=== PATIENT | male | born 1995 | race Caucasian/White ===

== ENCOUNTER 2019-10-03 17:05 | Observation (INO) | payer OTHER, SELFPAY ==
[2019-10-03 17:05] VITALS: BP 153/96; PULSE 104; RESP 16; TEMP 36.6; BMI 55.7
--- NOTE | 2019-10-03 18:23 | EKG12_ITS ---
Test Reason : Blood Pressure : / mmHG Vent. Rate : 086 BPM Atrial Rate : 086 BPM P-R Int : 146 ms QRS Dur : 082 ms QT Int : 394 ms P-R-T Axes : 082 020 -01 degrees QTc Int : 471 ms Normal sinus rhythm Normal ECG Confirmed by DASH WHITE, ABBIE ([id number]), industrial editor CHALO BURLESON ([id number]) on 10/08/2019 9:30:15 AM Referred By: Dylan Bailey Confirmed By:EDEL BOWLING MD
--- NOTE | 2019-10-03 18:25 | ED.DCSUM_ITS ---
History of Present Illness Chief Complaint: Cellulitis Detail of Chief Complaint: Right lower extremity Informant: Patient, Family Onset: Days - Onset of redness a couple days ago., Weeks - Lateral lower extremity swelling 2 to 3 weeks ago Context: Sudden Onset Timing: Continuous Quality: Red Location: Right lower extremity Current Severity: Moderate Maximum Severity: Moderate Worsened by: Break in skin Relieved by: Nothing Associated Symptoms: Groin pain Narrative: Patient is a 23-year-old male who presents with redness to his right lower extremity that started a couple days ago. Last evening he complained of groin pain. He is on no medication, no chronic medical problems and no allergies to medication. He denies headache, visual, ocular auditory symptoms. He denies cardiac respiratory symptoms. He denies nausea vomiting. He denies diarrhea. He denies urologic symptoms. Prior similar symptoms: No Recent Illness/Hospitalization: No - Past Medical History (1) No significant past medical history Status: Acute Past Medical History - Allergies and Home Meds Allergies/Adverse Reactions: Allergies No Known Allergies Allergy (Verified 10/03/19 18:07) Primary Care Physician: Jenny Phillip MD [Primary Care Provider] - Prior records reviewed: Yes Past Medical History: None Surgical History: no surgical history Lives: With Family Smoking Status: Current some day smoker Alcohol: Occasional - On weekends up to 10 beers Drugs: None Review of Systems General: Reports: Malaise. Denies: Chills, Fever, Subjective, Sweats, Weight loss, - Eyes: Denies: Visual changes - bilaterally, Blurred Vision - bilaterally ENT: Denies: Rhinorrhea, Sore throat Cardiovascular: Denies: Chest pain, Palpitations Respiratory: Denies: Dyspnea, Cough, Dyspnea on exertion Gastrointestinal: Denies: Abdominal pain, Nausea, Vomiting, Diarrhea, Melena, Hematochezia Genitourinary: Denies: Dysuria, Hematuria, Frequency Musculoskeletal: Reports: Swelling, Extremity Pain. Denies: Myalgias, Arthralgias, Neck pain, Back pain, -, - Skin: Reports: Rash, Abrasions, Wounds. Denies: Abscess, -, - Neurological: Reports: Weakness. Denies: Headache, Parasthesia, Numbness, -, - Endocrine: Denies: Polyuria, Polydipsia Hematologic: Denies: Easy bruising, Easy bleeding Allergy: Denies: Uticaria Physical Exam Vital Signs/Narrative: Vital Signs Temp Pulse Resp BP 10/03/19 17:05 97.8 F 104 H 16 153/96 H Inital Vital Signs reviewed: Yes General: Well nourished, Well developed, Obese, No Acute Distress Head: Normocephalic, Atraumatic Eyes: Perrl, EOMI. Negative for: Pale conjunctiva, Scleral icterus ENT: TM's clear Neck: Supple, Nontender, No lymphadenopathy, No JVD Cardiovascular: Regular rhythm, No murmurs, Normal S1, Normal S2, Tachycardia Respiratory: No distress, CTA bilaterally, Chest nontender Abdomen: Soft, Nontender, Nondistended, Normal bowel sounds Rectal: Deferred Back: Nontender, Normal Inspection Extremities: Tenderness, Edema, - - There is right inguinal lymphadenopathy.. Negative for: Nontender, No edema, Calf Tenderness Skin: Normal color, Rash. Negative for: Cyanosis, Diaphoresis, Jaundice, No Trauma Neurological: Alert, Oriented x3, Cranial nerves II-XII grossly intact, Normal Strength, Normal Sensation Psychological: Normal affect, Normal Mood Diagnostic/Tx/Re-eval Laboratory Results 10/03/19 10/03/19 10/03/19 18:35 18:35 18:35 WBC Cancelled Corrected WBC Cancelled RBC Cancelled Hgb Cancelled Hct Cancelled MCV Cancelled MCH Cancelled MCHC Cancelled RDW Std Deviation Cancelled RDW Coeff of Carol Cancelled Plt Count Cancelled MPV Cancelled Immature Gran % (Auto) Cancelled Neut % (Auto) Cancelled Lymph % (Auto) Cancelled [place] % (Auto) Cancelled Eos % (Auto) Cancelled Baso % (Auto) Cancelled Absolute Neuts (auto) Cancelled Absolute Lymphs (auto) Cancelled Total Counted Cancelled Neutrophils % (Manual) Cancelled Band Neutrophils % Cancelled Lymphocytes % (Manual) Cancelled Monocytes % (Manual) Cancelled Eosinophils % (Manual) Cancelled Basophils % (Manual) Cancelled Metamyelocytes % Cancelled Myelocytes % Cancelled Promyelocytes % Cancelled Blast Cells % Cancelled Plasma Cell % (Manual) Cancelled Other Cells % Cancelled Nucleated RBC % Cancelled Nucleated RBCs/100 WBC Cancelled Differential Comment Cancelled Diff Path Review Cancelled Hypersegmented Neuts Cancelled Atypical Lymphocytes Cancelled Reactive Lymphocytes Cancelled Smudge Cells Cancelled Toxic Granulation Cancelled Toxic Vacuolation Cancelled Dohle Bodies Cancelled Chase Rods Cancelled Platelet Estimate Cancelled Plt Morphology Comment Cancelled RBC Morphology Cancelled Polychromasia Cancelled Hypochromasia Cancelled Poikilocytosis Cancelled Basophilic Stippling Cancelled Anisocytosis Cancelled Microcytosis Cancelled Macrocytosis Cancelled Spherocytes Cancelled Sickle Cells Cancelled Target Cells Cancelled Tear Drop Cells Cancelled Ovalocytes Cancelled Stomatocytes Cancelled [place] Bodies Cancelled [place] Cells Cancelled Bite Cells Cancelled Crenated Cell Cancelled Acanthocytes (Spur) Cancelled Rouleaux Cancelled Schistocytes Cancelled PT Cancelled INR Cancelled APTT Cancelled Sodium Cancelled Potassium Cancelled Chloride Cancelled Carbon Dioxide Cancelled Anion Gap Cancelled BUN Cancelled Creatinine Cancelled Estim Creat Clear Calc Cancelled Est GFR (MDRD) Af Amer Cancelled Est GFR (MDRD) Non-Af Cancelled BUN/Creatinine Ratio Cancelled Glucose Cancelled Lactic Acid Calcium Cancelled Total Bilirubin Cancelled AST Cancelled ALT Cancelled Alkaline Phosphatase Cancelled Total Protein Cancelled Albumin Cancelled Globulin Cancelled Albumin/Globulin Ratio Cancelled Urine Color Urine Clarity Urine pH Ur Specific [place] Urine Protein Urine Glucose (UA) Urine Ketones Urine Occult Blood Urine Nitrite Urine Bilirubin Urine Urobilinogen Ur Leukocyte Esterase Urine RBC Urine WBC Ur Squamous Epith Cells Urine Bacteria Urine Mucus 10/03/19 10/03/19 10/03/19 18:35 19:05 19:05 WBC 8.9 Corrected WBC RBC 4.02 L Hgb 12.0 L Hct 36.5 L MCV 90.8 MCH 29.9 MCHC 32.9 RDW Std Deviation 42.0 RDW Coeff of Carol 12.7 Plt Count 186 MPV 10.2 Immature Gran % (Auto) 0.600 Neut % (Auto) 64.8 Lymph % (Auto) 20.4 [place] % (Auto) 11.7 H Eos % (Auto) 2.2 Baso % (Auto) 0.3 Absolute Neuts (auto) 5.8 Absolute Lymphs (auto) 1.82 Total Counted Neutrophils % (Manual) Band Neutrophils % Lymphocytes % (Manual) Monocytes % (Manual) Eosinophils % (Manual) Basophils % (Manual) Metamyelocytes % Myelocytes % Promyelocytes % Blast Cells % Plasma Cell % (Manual) Other Cells % Nucleated RBC % 0 Nucleated RBCs/100 WBC Differential Comment Diff Path Review Hypersegmented Neuts Atypical Lymphocytes Reactive Lymphocytes Smudge Cells Toxic Granulation Toxic Vacuolation Dohle Bodies Chase Rods Platelet Estimate Plt Morphology Comment RBC Morphology Polychromasia Hypochromasia Poikilocytosis Basophilic Stippling Anisocytosis Microcytosis Macrocytosis Spherocytes Sickle Cells Target Cells Tear Drop Cells Ovalocytes Stomatocytes [place] Bodies Eileen Cells Bite Cells Crenated Cell Acanthocytes (Spur) Rouleaux Schistocytes PT 13.7 INR 1.1 APTT 28.6 Sodium Potassium Chloride Carbon Dioxide Anion Gap BUN Creatinine Estim Creat Clear Calc Est GFR (MDRD) Af Amer Est GFR (MDRD) Non-Af BUN/Creatinine Ratio Glucose Lactic Acid 1.1 Calcium Total Bilirubin AST ALT Alkaline Phosphatase Total Protein Albumin Globulin Albumin/Globulin Ratio Urine Color Urine Clarity Urine pH Ur Specific [place] Urine Protein Urine Glucose (UA) Urine Ketones Urine Occult Blood Urine Nitrite Urine Bilirubin Urine Urobilinogen Ur Leukocyte Esterase Urine RBC Urine WBC Ur Squamous Epith Cells Urine Bacteria Urine Mucus 10/03/19 10/03/19 19:05 19:20 WBC Corrected WBC RBC Hgb Hct MCV MCH MCHC RDW Std Deviation RDW Coeff of Carol Plt Count MPV Immature Gran % (Auto) Neut % (Auto) Lymph % (Auto) [place] % (Auto) Eos % (Auto) Baso % (Auto) Absolute Neuts (auto) Absolute Lymphs (auto) Total Counted Neutrophils % (Manual) Band Neutrophils % Lymphocytes % (Manual) Monocytes % (Manual) Eosinophils % (Manual) Basophils % (Manual) Metamyelocytes % Myelocytes % Promyelocytes % Blast Cells % Plasma Cell % (Manual) Other Cells % Nucleated RBC % Nucleated RBCs/100 WBC Differential Comment Diff Path Review Hypersegmented Neuts Atypical Lymphocytes Reactive Lymphocytes Smudge Cells Toxic Granulation Toxic Vacuolation Dohle Bodies Chase Rods Platelet Estimate Plt Morphology Comment RBC Morphology Polychromasia Hypochromasia Poikilocytosis Basophilic Stippling Anisocytosis Microcytosis Macrocytosis Spherocytes Sickle Cells Target Cells Tear Drop Cells Ovalocytes Stomatocytes [place] Bodies [place] Cells Bite Cells Crenated Cell Acanthocytes (Spur) Rouleaux Schistocytes PT INR APTT Sodium 139 Potassium 4.1 Chloride 107 Carbon Dioxide 27.0 Anion Gap 5 BUN 17 Creatinine 1.08 Estim Creat Clear Calc 120.22 Est GFR (MDRD) Af Amer 108 Est GFR (MDRD) Non-Af 89 BUN/Creatinine Ratio 15.7 Glucose 84 Lactic Acid Calcium 8.7 Total Bilirubin 0.80 AST 32 ALT 49 Alkaline Phosphatase 73 Total Protein 7.4 Albumin 3.5 Globulin 3.9 Albumin/Globulin Ratio 0.9 Urine Color Yellow Urine Clarity Clear Urine pH 5.0 Ur Specific [place] 1.020 Urine Protein Negative Urine Glucose (UA) Normal Urine Ketones Negative Urine Occult Blood 10 H Urine Nitrite Negative Urine Bilirubin Negative Urine Urobilinogen Normal Ur Leukocyte Esterase Negative Urine RBC 0 SEEN Urine WBC 0 SEEN Ur Squamous Epith Cells 0 SEEN Urine Bacteria 0 SEEN Urine Mucus 0 SEEN Patient only has 1 sirs criteria. Lactate is normal. Patient has significant cellulitis of the entire right lower extremity. He was started on IV antibiotics. The hospitalist was paged for admission. - Rhythm Strip Rhythm Strip: Sinus Rhythm - EKG Initial EKG Interpretation: Sinus Rhythm - Sinus rhythm with a ventricular rate 86. CT interval is 146. QRS duration 82 ms. QT duration 3 to 94 ms. [place] is normal. The EKG is normal. - Medical Decision Making Presents with cellulitis of the right lower extremity including foot. Appropriate sepsis work-up was undertaken to rule out cellulitis with sepsis, severe sepsis or septic shock. He did receive fluid bolus since he is tachycardic. He was started on Unasyn. ED Disposition - Plan for ED Patient: Disposition: Home or Assisted Living Diagnosis: Cellulitis of right lower extremity Referrals: Jenny Phillip MD [Primary Care Provider] -
[2019-10-03 18:53] VITALS: BP 138/98; PULSE 83; RESP 16; TEMP 36.6; O2SAT 100
[2019-10-03 18:54] VITALS: O2SAT 100
[2019-10-03] MEDS: 0.9% Normal Saline 1,000 ML 999 ML IV (18:56)
[2019-10-03 19:21] LABS: Absolute Lymphocyte Count 1.82 X10^3/uL (0.83-4.51); Absolute Neutrophil Count 5.8 X10^3/uL (2.0-7.7); Basophil# 0.03 X10^3/uL; Basophil% 0.3 % (0-1); Eosinophils% 2.2 % (0-5); Hematocrit 36.5 % (40-54); Lymphocyte # 1.82 X10^3/ul (4.0); Lymphocyte % 20.4 % (19-41); Mean Corp Hgb Conc 32.9 g/dL (32-36); Mean Corpuscular Hgb 29.9 pg (27.0-32.0); Mean Corpuscular Volume 90.8 fL (80-94); Mean Platelet Vol. 10.2 fl (6.2-12.0); Monocyte# 1.05 X10^3/uL; Monocyte% 11.7 % (0-10); NRBC Flagged by Analyzer 0 % (0-5); Neutrophil # 5.79 X10^3/uL (2.7-7.7); Neutrophil % 64.8 % (47-70); Platelet Count 186 K/mm3 (150-450); RBC Distribution Width CV 12.7 % (11.6-14.6); Red Blood Count 4.02 M/mm3 (4.6-6.2); White Blood Count 8.9 K/mm3 (4.4-11.0)
[2019-10-03 19:31] LABS: Lactic Acid 1.1 mmol/L (0.4-1.9)
[2019-10-03 19:33] LABS: Bacteria 0 SEEN /hpf (None Seen); Mucous, Urine 0 SEEN /hpf (<or=2+); Red Blood Cells-Urine 0 SEEN /hpf (0-5); Squamous Epithelial Cells - UA 0 SEEN /hpf (0-5); White Blood Cells 0 SEEN /hpf (0-5)
[2019-10-03 19:39] LABS: ALB/GLOB Ratio 0.9 RATIO (0.9-2.4); AST(SGOT) 32 U/L (15-37); Alanine Aminotransfer ALT/SGPT 49 U/L (16-61); Albumin, Serum 3.5 g/dL (3.2-5.0); Alkaline Phosphatase 73 U/L (45-117); Anion Gap 5 (5-15); BUN 17 mg/dL (7-18); BUN/Creat Ratio 15.7 RATIO (10-20); Calcium,Total 8.7 mg/dL (8.5-10.1); Chloride 107 mmol/L (98-107); Creatinine, Serum 1.08 mg/dL (0.70-1.30); EST Glomerular Filtration Rate 89 mL/min (>60); Est Glom Filt Rate - Afr Amer 108 mL/min (>60); Estimated Creatinine Clearance 120.22 ml/min; Globulin 3.9 g/dL (2.2-4.2); Glucose 84 mg/dL (74-106); Potassium 4.1 mmol/L (3.5-5.1); Protein, Total 7.4 g/dL (6.4-8.2); Sodium Level 139 mmol/L (136-145)
[2019-10-03 19:41] VITALS: BP 145/63; PULSE 83; RESP 22; O2SAT 100
[2019-10-03 19:49] LABS: International Normalized Ratio 1.1; Partial Thromboplast Time 28.6 Seconds (24.1-36.2); Prothrombin Time (Protime)PT. 13.7 SECONDS (11.7-14.9)
[2019-10-03 19:54] LABS: Color, Urine Yellow (Yellow); Glucose, Dipstick Normal (Normal); Ketone-Dipstick Negative (Negative); Leukocyte Esterase-Dipstick Negative /ul (Negative); Nitrite-Dipstick Negative (Negative); Occult Blood-Urine 10 /ul (Negative); Protein-Dipstick Negative (Negative); Urine Bilirubin Dipstick Negative (Negative); Urine Clarity Clear (Clear); Urine Urobilinogen Normal (Normal)
--- NOTE | 2019-10-03 20:17 | HP.PCM_ITS ---
Problem List (1) Morbid (severe) obesity due to excess calories Status: Chronic (2) Cellulitis of right lower extremity Status: Acute History of Present Illness Date of Admission: 10/03/19 Chief Complaint: redness of right lower extremity The patient is a 23 year old M with a significant history of morbid obesity; MRSA of toe who presented to the emergency department with redness of his right lower extremities that started 2 to 3 days ago. Her right lower extremity is red from his foot to his thigh. Associated with his symptoms is swelling of the same right lower extremity. He has pain when he presses on his right lower extremities. He denies any fever or chills. Past Medical History Past Medical History (Chronic Problems): Chronic Problems Morbid (severe) obesity due to excess calories (Chronic) Allergies No Known Allergies Allergy (Verified 10/03/19 18:07) Home Medications: Ambulatory Orders Medication Instructions Recorded NK 10/03/19 Surgical History: Surgical History (Last Updated 09/26/19 @ 09:45 by Tammy Hill) knee Surgical History: - - Meniscus surgery; trimming of toe. Psychiatric History: - Lives: With Family Smoking Status: Current some day smoker Tobacco Use: Cigarettes Alcohol: Occasional - On weekends up to 10 beers Drugs: None - *Family History Maternal Family History: Family History (Last Reviewed 10/04/19 @ 00:[address] Dylan Bailey MD) Mother Hypertension Anxiety and depression Grandfather Diabetes Myocardial infarction Heart disease Aunt Diabetes Myocardial infarction Hypertension Review of Systems Constitutional: Denies: Chills, Fever, Weight Change HEENT: Denies: Head Aches, Sinus Congestion, Sinus Drainage Cardiovascular: Reports: Edema - Right leg. Denies: Chest Pain, Palpitations Respiratory: Denies: Cough, Shortness of breath at rest, Sputum production Gastrointestinal: Denies: Abdominal Pain, Nausea, Vomiting Genitourinary: Denies: Dysuria Musculoskeletal: Denies: Joint Pain, Joint Tenderness Skin: Reports: - - Erythema of right lower extremity. Denies: Rash, Wounds Neurological: Denies: Numbness, Tingling, Focal weakness Psychiatric: Denies: Anxiety, Depression, Homicidal Ideations, Suicidal Ideations Hematologic/ Lymphatic: Denies: Easy Bruising, Easy Bleeding VTE Information - Inpt Only VTE Present on Admission: No VTE Mechan Device Prophylaxis: None VTE Pharm Prophylaxis ordered?: Yes Patient Problems: Active and Suspected Problems Cellulitis of right lower extremity (Acute) - Physical Exam Vitals/I&O's: Vital Signs Temp Pulse Resp BP Pulse Ox 97.8 F 83 22 H 145/63 H 100 10/03/19 18:53 10/03/19 19:41 10/03/19 19:41 10/03/19 19:41 10/03/19 19:41 Oxygen Delivery Method Room Air Weight: 191.7 kg Body Mass Index (BMI) 55.7 General: Alert, Oriented x3, Cooperative HEENT: Atraumatic, PERRLA, EOMI, Normocephalic Neck: Supple, No JVD, Negative Carotid Bruits Lungs: Clear to auscultation, Normal air movement, No rhonchi, No wheeze, No rales Cardiovascular: Regular rate, Regular Rhythm, Normal S1, Normal S2, No murmurs Abdomen: Bowel Sounds Present, Soft, Non Tender Extremities: Capillary Refill Less than 3 Seconds, Edema - Right lower extremity Skin: - - Erythema of right lower extremity (foot to thigh); increased warmth of right lower extremity. Musculoskeletal: No Tenderness to Palpation of Joints or Extremities Neurological: Cranial nerves II-XII grossly intact Psych/Mental Status: Normal Affect, Appropriate Laboratory Results 10/03/19 18:35: WBC Cancelled, Corrected WBC Cancelled, RBC Cancelled, Hgb Cancelled, Hct Cancelled, MCV Cancelled, MCH Cancelled, MCHC Cancelled, RDW Std Deviation Cancelled, RDW Coeff of Carol Cancelled, Plt Count Cancelled, MPV Cancelled, Immature Gran % (Auto) Cancelled, Neut % (Auto) Cancelled, Lymph % (Auto) Cancelled, [place] % (Auto) Cancelled, Eos % (Auto) Cancelled, Baso % (Auto) Cancelled, Absolute Neuts (auto) Cancelled, Absolute Lymphs (auto) Cancelled, Total Counted Cancelled, Neutrophils % (Manual) Cancelled, Band Neutrophils % Cancelled, Lymphocytes % (Manual) Cancelled, Monocytes % (Manual) Cancelled, Eosinophils % (Manual) Cancelled, Basophils % (Manual) Cancelled, Metamyelocytes % Cancelled, Myelocytes % Cancelled, Promyelocytes % Cancelled, Blast Cells % Cancelled, Plasma Cell % (Manual) Cancelled, Other Cells % Cancelled, Nucleated RBC % Cancelled, Nucleated RBCs/100 WBC Cancelled, Differential Comment Cancelled, Diff Path Review Cancelled, Hypersegmented Neuts Cancelled, Atypical Lymphocytes Cancelled, Reactive Lymphocytes Cancelled, Smudge Cells Cancelled, Toxic Granulation Cancelled, Toxic Vacuolation Cancelled, Dohle Bodies Cancelled, Chase Rods Cancelled, Platelet Estimate Cancelled, Plt Morphology Comment Cancelled, RBC Morphology Cancelled, Polychromasia Cancelled, Hypochromasia Cancelled, Poikilocytosis Cancelled, Basophilic Stippling Cancelled, Anisocytosis Cancelled, Microcytosis Cancelled, Macrocytosis Cancelled, Spherocytes Cancelled, Sickle Cells Cancelled, Target Cells Cancelled, Tear Drop Cells Cancelled, Ovalocytes Cancelled, Stomatocytes Cancelled, [place] Bodies Cancelled, [place] Cells Cancelled, Bite Cells Cancelled, Crenated Cell Cancelled, Acanthocytes (Spur) Cancelled, Rouleaux Canc elled, Schistocytes Cancelled 10/03/19 18:35: PT Cancelled, INR Cancelled, APTT Cancelled 10/03/19 18:35: Sodium Cancelled, Potassium Cancelled, Chloride Cancelled, Carbon Dioxide Cancelled, Anion Gap Cancelled, BUN Cancelled, Creatinine Cancelled, Estim Creat Clear Calc Cancelled, Est GFR (MDRD) Af Amer Cancelled, Est GFR (MDRD) Non-Af Cancelled, BUN/Creatinine Ratio Cancelled, Glucose Cancelled, Calcium Cancelled, Total Bilirubin Cancelled, AST Cancelled, ALT Cancelled, Alkaline Phosphatase Cancelled, Total Protein Cancelled, Albumin Cancelled, Globulin Cancelled, Albumin/Globulin Ratio Cancelled 10/03/19 18:35: Lactic Acid 1.1 10/03/19 19:05: WBC 8.9, RBC 4.02 L, Hgb 12.0 L, Hct 36.5 L, MCV 90.8, MCH 29.9, MCHC 32.9, RDW Std Deviation 42.0, RDW Coeff of Carol 12.7, Plt Count 186, MPV 10.2, Immature Gran % (Auto) 0.600, Neut % (Auto) 64.8, Lymph % (Auto) 20.4, [place] % (Auto) 11.7 H, Eos % (Auto) 2.2, Baso % (Auto) 0.3, Absolute Neuts (auto) 5.8, Absolute Lymphs (auto) 1.82, Nucleated RBC % 0 10/03/19 19:05: PT 13.7, INR 1.1, APTT 28.6 10/03/19 19:05: Sodium 139, Potassium 4.1, Chloride 107, Carbon Dioxide 27.0, Anion Gap 5, BUN 17, Creatinine 1.08, Estim Creat Clear Calc 120.22, Est GFR (MDRD) Af Amer 108, Est GFR (MDRD) Non-Af 89, BUN/Creatinine Ratio 15.7, Glucose 84, Calcium 8.7, Total Bilirubin 0.80, AST 32, ALT 49, Alkaline Phosphatase 73, Total Protein 7.4, Albumin 3.5, Globulin 3.9, Albumin/Globulin Ratio 0.9 10/03/19 19:20: Urine Color Yellow, Urine Clarity Clear, Urine pH 5.0, Ur Specific [place] 1.020, Urine Protein Negative, Urine Glucose (UA) Normal, Urine Ketones Negative, Urine Occult Blood 10 H, Urine Nitrite Negative, Urine Bilirubin Negative, Urine Urobilinogen Normal, Ur Leukocyte Esterase Negative, Urine RBC 0 SEEN, Urine WBC 0 SEEN, Ur Squamous Epith Cells 0 SEEN, Urine Bacteria 0 SEEN, Urine Mucus 0 SEEN Assessment/Plan All Active Problems Cellulitis of right lower extremity (Acute) The patient is a 23 year old M with a significant history of morbid obesity; MRSA of toe who presented to the emergency department with redness of his right lower extremities; and edema of the same extremity. Cellulitis of right lower extremity. Received Unasyn at emergency department. Because of his history of MRSA of 2 vancomycin ordered. Cefazolin ordered. Elevate right leg extremity Tylenol PRN for pain Morbid obesity Complicates care. Recommend lifestyle modification. Elevated blood pressure without diagnosis of hypertension Patient blood pressure was elevated on presentation PRN hydralazine ordered. Trend blood pressures. DVT prophylaxis Subcutaneous Lovenox. Inpatient E&M: 77913 Init Hosp L3
[2019-10-03 20:23] VITALS: BP 165/78; PULSE 89; RESP 17; TEMP 36.6; O2SAT 98
[2019-10-03 21:19] VITALS: BMI 55.7
[2019-10-03 21:37] VITALS: BP 109/55; PULSE 88; RESP 16; TEMP 36.8; O2SAT 100
--- NOTE | 2019-10-03 23:09 | PCM.RX.CS ---
Consult Pharmacy has been consulted to manage selected antiobiotic: Vancomycin Type of Consult: New start Suspected Infection: Skin/Soft tissue Prior Doses of Antibiotics Received/Current Regimen: Medications Vancomycin HCl 1,500 mg/ (Sodium Chloride) 530 mls @ 250 mls/hr IV Q8H SANDIP Vancomycin HCl 2,000 mg/ (Sodium Chloride) 540 mls @ 250 mls/hr IV X1 ONE Stop: 10/03/19 23:32 Last Admin: 10/03/19 22:04 Dose: 250 mls/hr Labs: Sodium 139 mmol/L (136-145) 10/03/19 19:05 Potassium 4.1 mmol/L (3.5-5.1) 10/03/19 19:05 Chloride 107 mmol/L (98-107) 10/03/19 19:05 Carbon Dioxide 27.0 mmol/L (21.0-32.0) 10/03/19 19:05 Anion Gap 5 (5-15) 10/03/19 19:05 BUN 17 mg/dL (7-18) 10/03/19 19:05 Creatinine 1.08 mg/dL (0.70-1.30) 10/03/19 19:05 Est GFR (MDRD) Af Amer 108 mL/min (>60) 10/03/19 19:05 Est GFR (MDRD) Non-Af 89 mL/min (>60) 10/03/19 19:05 BUN/Creatinine Ratio 15.7 RATIO (10-20) 10/03/19 19:05 Glucose 84 mg/dL (74-106) 10/03/19 19:05 Weight used for dosin.6 kg Estimated Creatinine Clearance: 120 Goal Trough: 15-20 mcg/mL Pharmacy Plan for Drug Dosing: Pharmacy Service will continue to monitor and adjust dosing as required. Follow-Up Labs: Trough Vancomycin Labs to be done on [date and time ordered]: 10/04/19 @[id number]
[2019-10-04] MEDS: Cefazolin 2 GM in 0.9% Normal Saline 100 ML IV ×2 (00:56→05:05)
--- NOTE | 2019-10-04 01:09 | NURSING ---
in to hang atb pt with loud snoring 10-15 second periods of apnea, pt awakened states he hasnt been diagnosed with sleep apnea but has a dr appt soon and was going to ask for a referral to be evaluated for elizabet, placed on 2L O2 per NC per protocol and encouraged pt to talk with his dr about apnea testing.
[2019-10-04 05:02] VITALS: BP 144/67; PULSE 82; RESP 16; TEMP 36.9; O2SAT 99
[2019-10-04 06:43] LABS: Absolute Lymphocyte Count 1.67 X10^3/uL (0.83-4.51); Absolute Neutrophil Count 4.8 X10^3/uL (2.0-7.7); Basophil# 0.04 X10^3/uL; Basophil% 0.5 % (0-1); Eosinophil# 0.15 X10^3/uL; Hematocrit 37.1 % (40-54); Hemoglobin 12.1 g/dL (13.0-16.5); Lymphocyte # 1.67 X10^3/ul (4.0); Lymphocyte % 21.8 % (19-41); Mean Corp Hgb Conc 32.6 g/dL (32-36); Mean Corpuscular Volume 92.1 fL (80-94); Mean Platelet Vol. 9.9 fl (6.2-12.0); Monocyte# 0.94 X10^3/uL; Monocyte% 12.3 % (0-10); NRBC Flagged by Analyzer 0 % (0-5); Neutrophil # 4.81 X10^3/uL (2.7-7.7); Neutrophil % 62.7 % (47-70); Platelet Count 187 K/mm3 (150-450); RBC Distribution Width CV 12.9 % (11.6-14.6); RBC Distribution Width SD 42.9 fl (35.1-43.9); Red Blood Count 4.03 M/mm3 (4.6-6.2); White Blood Count 7.7 K/mm3 (4.4-11.0)
[2019-10-04 07:07] LABS: Anion Gap 5 (5-15); BUN 13 mg/dL (7-18); BUN/Creat Ratio 13.5 RATIO (10-20); Calcium,Total 8.2 mg/dL (8.5-10.1); Chloride 109 mmol/L (98-107); Creatinine, Serum 0.96 mg/dL (0.70-1.30); EST Glomerular Filtration Rate 103 mL/min (>60); Est Glom Filt Rate - Afr Amer 124 mL/min (>60); Estimated Creatinine Clearance 135.25 ml/min; Glucose 116 mg/dL (74-106); Potassium 4.2 mmol/L (3.5-5.1); Sodium Level 141 mmol/L (136-145)
[2019-10-04] MEDS: Enoxaparin 40 MG/0.4 ML Syringe SC (10:14)
[2019-10-04 10:25] VITALS: BP 151/74; PULSE 79; RESP 16; TEMP 36.6; O2SAT 100
--- NOTE | 2019-10-04 10:30 | CASEMGMT ---
RN KAT Face to Face with patient for initial transition planning/care coordination assessment. RN CM introduced self and role at [facility]. Patient lying in bed, alert and oriented. Patient willing to participate in assessment and is able to answer all questions appropriately. Care providers, pharmacy, and demographics verified. Patient wishes to discharge home, denies need for home health at this time. Patient states he has no further needs or concerns at this time. CM to follow for discharge planning needs that may arise. PCP: Kenji Specialists: none Preferred Pharmacy:[facility] Insurance: [employer] Prescription Benefit: yes Living Will/HPOA: none LNOK: mother Living Arrangements: patient lives with mother in a 1 story home with 1-2 steps to enter the home. Patient states he is independent at home. Transportation: self/mother DME/HHC: Patient denies DME. Disposition Plan: Patient to discharge home with family support and follow-up plans in place. Anabela DALE, RN, CM
--- NOTE | 2019-10-04 11:07 | PN_ITS ---
Patient Problems: Active and Suspected Problems Cellulitis of right lower extremity (Acute) Reason for Visit: RLE cellulitis Subjective: Feeling better. Decreased redness of RLE. Vitals/I&O's: Vital Signs Temp Pulse Resp BP Pulse Ox 36.6 C 79 16 151/74 H 100 10/04/19 10:25 10/04/19 10:25 10/04/19 10:25 10/04/19 10:25 10/04/19 10:25 Oxygen Flow Rate (L/min) 2 Oxygen Delivery Method Room Air Weight: 191.6 kg Body Mass Index (BMI) 55.7 Intake and Output for Last 24 Hours 10/02/19 10/03/19 10/04/19 23:59 23:59 23:59 Intake Total 1112 / 1112 1290 / 1290 Balance 1112 / 1112 1290 / 1290 General: Alert, No apparent distress HEENT: Atraumatic, Normocephalic Oral: Moist Mucosa, No Gingival or Mucosal Lesions/ Ulcerations Extremities: No Calf Tenderness, Edema Skin: - - faint erythema and warmth of RLE. Overall, withdrawn from lines of demarcation. no fluctuance noted. Psych/Mental Status: Normal Affect, Appropriate Laboratory Results 10/03/19 18:35: WBC Cancelled, Corrected WBC Cancelled, RBC Cancelled, Hgb Cancelled, Hct Cancelled, MCV Cancelled, MCH Cancelled, MCHC Cancelled, RDW Std Deviation Cancelled, RDW Coeff of Carol Cancelled, Plt Count Cancelled, MPV Cancelled, Immature Gran % (Auto) Cancelled, Neut % (Auto) Cancelled, Lymph % (Auto) Cancelled, Price % (Auto) Cancelled, Eos % (Auto) Cancelled, Baso % (Auto) Cancelled, Absolute Neuts (auto) Cancelled, Absolute Lymphs (auto) Cancelled, Total Counted Cancelled, Neutrophils % (Manual) Cancelled, Band Neutrophils % Cancelled, Lymphocytes % (Manual) Cancelled, Monocytes % (Manual) Cancelled, Eosinophils % (Manual) Cancelled, Basophils % (Manual) Cancelled, Metamyelocytes % Cancelled, Myelocytes % Cancelled, Promyelocytes % Cancelled, Blast Cells % Cancelled, Plasma Cell % (Manual) Cancelled, Other Cells % Cancelled, Nucleated RBC % Cancelled, Nucleated RBCs/100 WBC Cancelled, Differential Comment Cancelled, Diff Path Review Cancelled, Hypersegmented Neuts Cancelled, Atypical Lymphocytes Cancelled, Reactive Lymphocytes Cancelled, Smudge Cells Cancelled, Toxic Granulation Cancelled, Toxic Vacuolation Cancelled, Dohle Bodies Cancelled, Chase Rods Cancelled, Platelet Estimate Cancelled, Plt Morphology Comment Cancelled, RBC Morphology Cancelled, Polychromasia Cancelled, Hypochromasia Cancelled, Poikilocytosis Cancelled, Basophilic Stippling Cancelled, Anisocytosis Cancelled, Microcytosis Cancelled, Macrocytosis Cancelled, Spherocytes Cancelled, Sickle Cells Cancelled, Target Cells Cancelled, Tear Drop Cells Cancelled, Ovalocytes Cancelled, Stomatocytes Cancelled, Weber-[place] Bodies Cancelled, [place] Cells Cancelled, Bite Cells Cancelled, Crenated Cell Cancelled, Acanthocytes (Spur) Cancelled, Rouleaux Cancelled, Schistocytes Cancelled 10/03/19 18:35: PT Cancelled, INR Cancelled, APTT Cancelled 10/03/19 18:35: Sodium Cancelled, Potassium Cancelled, Chloride Cancelled, Carbon Dioxide Cancelled, Anion Gap Cancelled, BUN Cancelled, Creatinine Cancelled, Estim Creat Clear Calc Cancelled, Est GFR (MDRD) Af Amer Cancelled, Est GFR (MDRD) Non-Af Cancelled, BUN/Creatinine Ratio Cancelled, Glucose Cancelled, Calcium Cancelled, Total Bilirubin Cancelled, AST Cancelled, ALT Cancelled, Alkaline Phosphatase Cancelled, Total Protein Cancelled, Albumin Cancelled, Globulin Cancelled, Albumin/Globulin Ratio Cancelled 10/03/19 18:35: Lactic Acid 1.1 10/03/19 19:05: WBC 8.9, RBC 4.02 L, Hgb 12.0 L, Hct 36.5 L, MCV 90.8, MCH 29.9, MCHC 32.9, RDW Std Deviation 42.0, RDW Coeff of Carol 12.7, Plt Count 186, MPV 10.2, Immature Gran % (Auto) 0.600, Neut % (Auto) 64.8, Lymph % (Auto) 20.4, Price % (Auto) 11.7 H, Eos % (Auto) 2.2, Baso % (Auto) 0.3, Absolute Neuts (auto) 5.8, Absolute Lymphs (auto) 1.82, Nucleated RBC % 0 10/03/19 19:05: PT 13.7, INR 1.1, APTT 28.6 10/03/19 19:05: Sodium 139, Potassium 4.1, Chloride 107, Carbon Dioxide 27.0, Anion Gap 5, BUN 17, Creatinine 1.08, Estim Creat Clear Calc 120.22, Est GFR (MDRD) Af Amer 108, Est GFR (MDRD) Non-Af 89, BUN/Creatinine Ratio 15.7, Glucose 84, Calcium 8.7, Total Bilirubin 0.80, AST 32, ALT 49, Alkaline Phosphatase 73, Total Protein 7.4, Albumin 3.5, Globulin 3.9, Albumin/Globulin Ratio 0.9 10/03/19 19:20: Urine Color Yellow, Urine Clarity Clear, Urine pH 5.0, Ur Specific [place] 1.020, Urine Protein Negative, Urine Glucose (UA) Normal, Urine Ketones Negative, Urine Occult Blood 10 H, Urine Nitrite Negative, Urine Bilirubin Negative, Urine Urobilinogen Normal, Ur Leukocyte Esterase Negative, Urine RBC 0 SEEN, Urine WBC 0 SEEN, Ur Squamous Epith Cells 0 SEEN, Urine Bacteria 0 SEEN, Urine Mucus 0 SEEN 10/04/19 06:10: WBC 7.7, RBC 4.03 L, Hgb 12.1 L, Hct 37.1 L, MCV 92.1, MCH 30.0, MCHC 32.6, RDW Std Deviation 42.9, RDW Coeff of Carol 12.9, Plt Count 187, MPV 9.9, Immature Gran % (Auto) 0.700, Neut % (Auto) 62.7, Lymph % (Auto) 21.8, Price % (Auto) 12.3 H, Eos % (Auto) 2.0, Baso % (Auto) 0.5, Absolute Neuts (auto) 4.8, Absolute Lymphs (auto) 1.67, Nucleated RBC % 0 10/04/19 06:10: Sodium 141, Potassium 4.2, Chloride 109 H, Carbon Dioxide 27.0, Anion Gap 5, BUN 13, Creatinine 0.96, Estim Creat Clear Calc 135.25, Est GFR (MDRD) Af Amer 124, Est GFR (MDRD) Non-Af 103, BUN/Creatinine Ratio 13.5, Glucose 116 H, Calcium 8.2 L Current Medications Acetaminophen (Tylenol) 650 mg PO Q6H PRN PRN PRN Reason: Pain Score 1-10/Temp > 100.7 F Enoxaparin Sodium (Lovenox) 40 mg SC DAILY [facility] Last Admin: 10/04/19 10:14 Dose: 40 mg Documented by: Hydralazine HCl (Apresoline Iv) 5 mg IV Q4H PRN PRN PRN Reason: SBP > 160 Vancomycin IV Pharmacy to Dose (1 ea/ Sodium Chloride) 500 mls @ 250 mls/hr IV PRN PRN; Protocol PRN Reason: Rx to Dose Vancomycin HCl 1,500 mg/ (Sodium Chloride) 530 mls @ 250 mls/hr IV Q8H [facility] Last Infusion: 10/04/19 08:52 Dose: Infused Documented by: Melatonin (Melatonin) 3 mg PO QHS PRN PRN PRN Reason: INSOMNIA Ondansetron HCl (Zofran) 4 mg IV Q8H PRN PRN PRN Reason: NAUSEA/VOMITING Sodium Chloride () 10 - 40 ml IV UD PRN PRN Reason: SALINE FLUSH STROKE Vital Signs/Narrative: Vital Signs Temp Pulse Resp BP Pulse Ox 10/04/19 10:25 36.6 C 79 16 151/74 H 100 Medical Necessity - Tobacco Use Smoking Status: Current some day smoker Tobacco Use: Cigarettes Assessment/Plan All Active Problems Cellulitis of right lower extremity (Acute) 1. RLE cellulitis * overall improving * continue with vancomycin * will reassess this afternoon, and if better, could possibly discharge to home later today. 2. VTE prophylaxis: LMWH Inpatient E&M: [id number] [facility] L1
--- NOTE | 2019-10-04 12:48 | DCINST_ITS ---
- Discharge Diagnoses Current Active Problems: Current Active and Chronic Problems Cellulitis of right lower extremity (Acute) Morbid (severe) obesity due to excess calories (Chronic) You will use the following diet at home:: No restrictions Your food should be the consistency of: Regular Discharge Activity: Return to Normal Activity Return to work on:: 10/08/19 Weight Bearing Status: Weight bearing as tolerated Keep extremity elevated above heart level: Right Leg Call your doctor if your incision/area has: Continuous Slow Oozing, Sudden Increased Bleeding, Increased Pain/ Swelling, Increased Redness, Foul Smelling Discharge Call your doctor if you observe: Fever of 101 or Higher Allergies/Adverse Reactions: Allergies No Known Allergies Allergy (Verified 10/03/19 18:07) Medications to take at Discharge Acetaminophen 1,000 mg PO TID PRN #1 tablet 10/04/19 Ibuprofen 600 mg PO 4X/DAY PRN #1 tablet 10/04/19 Sulfamethoxazole/Trimethoprim [Bactrim Ds Tablet] 1 ea PO BID #14 tab 10/04/19 The following prescriptions were given: Acetaminophen 1,000 mg PO TID PRN #1 tablet PRN Reason: Pain Or Fever Sulfamethoxazole/Trimethoprim [Bactrim Ds Tablet] 1 ea PO BID #14 tab Transmission Status: Pending to [facility] Ibuprofen 600 mg PO 4X/DAY PRN #1 tablet PRN Reason: Pain Score 1-10/10 Primary Care Physician: Jenny Phillip MD [Primary Care Provider] - Within 1 Week Test Results: Test results from this visit will be discussed in further detail at your follow- up appointment, if applicable. Proposed Discharge Date: 10/04/19
--- NOTE | 2019-10-04 12:50 | PCM.DC.SUM ---
Discharge Date and Diagnosis - Problem List Patient Problems: Active and Suspected Problems Cellulitis of right lower extremity (Acute) Date of Admission: 10/03/19 Date of Discharge: 10/04/19 - Primary Discharge Diagnosis Acute Problems: Active Problems Cellulitis of right lower extremity (Acute) - Secondary Discharge Diagnosis Chronic Problems: Chronic Problems Morbid (severe) obesity due to excess calories (Chronic) Hospital Course and Treatment Operations: None Procedures: None Summary of Care Provided: The patient is a 23 year old M suffered a history of right lower extremity erythema. Patient presents emergency room was diagnosed with a cellulitis and started on vancomycin. Today, the patient states that his leg is better. When evaluated the patient and he had some light erythema on the anterior aspect of his right leg that appear to be withdrawn from line demarcation. Reassessed this afternoon and does not appear any worse may be slightly better. Clean the patient that we can discharge him with antibiotics. Antibiotics will be trimethoprim/sulfamethoxazole. Advised to complete antibiotics but also to notify someone or return to emergency room if his leg appears to be getting worse. Told patient that he should be able to return to work on the . [] Patient Problems: Active and Suspected Problems Cellulitis of right lower extremity (Acute) - Physical Exam Vitals/I&O's: Vital Signs Temp Pulse Resp BP Pulse Ox 36.6 C 79 16 151/74 H 100 10/04/19 10:25 10/04/19 10:25 10/04/19 10:25 10/04/19 10:25 10/04/19 10:25 Oxygen Flow Rate (L/min) 2 Oxygen Delivery Method Room Air Weight: 191.6 kg Body Mass Index (BMI) 55.7 Intake and Output for Last 24 Hours 10/02/19 10/03/19 10/04/19 23:59 23:59 23:59 Intake Total 1112 / 1112 1790 / 1790 Balance 1112 / 1112 1790 / 1790 Laboratory Results 10/03/19 18:35: WBC Cancelled, Corrected WBC Cancelled, RBC Cancelled, Hgb Cancelled, Hct Cancelled, MCV Cancelled, MCH Cancelled, MCHC Cancelled, RDW Std Deviation Cancelled, RDW Coeff of Carol Cancelled, Plt Count Cancelled, MPV Cancelled, Immature Gran % (Auto) Cancelled, Neut % (Auto) Cancelled, Lymph % (Auto) Cancelled, [place] % (Auto) Cancelled, Eos % (Auto) Cancelled, Baso % (Auto) Cancelled, Absolute Neuts (auto) Cancelled, Absolute Lymphs (auto) Cancelled, Total Counted Cancelled, Neutrophils % (Manual) Cancelled, Band Neutrophils % Cancelled, Lymphocytes % (Manual) Cancelled, Monocytes % (Manual) Cancelled, Eosinophils % (Manual) Cancelled, Basophils % (Manual) Cancelled, Metamyelocytes % Cancelled, Myelocytes % Cancelled, Promyelocytes % Cancelled, Blast Cells % Cancelled, Plasma Cell % (Manual) Cancelled, Other Cells % Cancelled, Nucleated RBC % Cancelled, Nucleated RBCs/100 WBC Cancelled, Differential Comment Cancelled, Diff Path Review Cancelled, Hypersegmented Neuts Cancelled, Atypical Lymphocytes Cancelled, Reactive Lymphocytes Cancelled, Smudge Cells Cancelled, Toxic Granulation Cancelled, Toxic Vacuolation Cancelled, Dohle Bodies Cancelled, Chase Rods Cancelled, Platelet Estimate Cancelled, Plt Morphology Comment Cancelled, RBC Morphology Cancelled, Polychromasia Cancelled, Hypochromasia Cancelled, Poikilocytosis Cancelled, Basophilic Stippling Cancelled, Anisocytosis Cancelled, Microcytosis Cancelled, Macrocytosis Cancelled, Spherocytes Cancelled, Sickle Cells Cancelled, Target Cells Cancelled, Tear Drop Cells Cancelled, Ovalocytes Cancelled, Stomatocytes Cancelled, Weber-[place] Bodies Cancelled, [place] Cells Cancelled, Bite Cells Cancelled, Crenated Cell Cancelled, Acanthocytes (Spur) Cancelled, Rouleaux Cancelled, Schistocytes Cancelled 10/03/19 18:35: PT Cancelled, INR Cancelled, APTT Cancelled 10/03/19 18:35: Sodium Cancelled, Potassium Cancelled, Chloride Cancelled, Carbon Dioxide Cancelled, Anion Gap Cancelled, BUN Cancelled, Creatinine Cancelled, Estim Creat Clear Calc Cancelled, Est GFR (MDRD) Af Amer Cancelled, Est GFR (MDRD) Non-Af Cancelled, BUN/Creatinine Ratio Cancelled, Glucose Cancelled, Calcium Cancelled, Total Bilirubin Cancelled, AST Cancelled, ALT Cancelled, Alkaline Phosphatase Cancelled, Total Protein Cancelled, Albumin Cancelled, Globulin Cancelled, Albumin/Globulin Ratio Cancelled 10/03/19 18:35: Lactic Acid 1.1 10/03/19 19:05: WBC 8.9, RBC 4.02 L, Hgb 12.0 L, Hct 36.5 L, MCV 90.8, MCH 29.9, MCHC 32.9, RDW Std Deviation 42.0, RDW Coeff of Carol 12.7, Plt Count 186, MPV 10.2, Immature Gran % (Auto) 0.600, Neut % (Auto) 64.8, Lymph % (Auto) 20.4, [place] % (Auto) 11.7 H, Eos % (Auto) 2.2, Baso % (Auto) 0.3, Absolute Neuts (auto) 5.8, Absolute Lymphs (auto) 1.82, Nucleated RBC % 0 10/03/19 19:05: PT 13.7, INR 1.1, APTT 28.6 10/03/19 19:05: Sodium 139, Potassium 4.1, Chloride 107, Carbon Dioxide 27.0, Anion Gap 5, BUN 17, Creatinine 1.08, Estim Creat Clear Calc 120.22, Est GFR (MDRD) Af Amer 108, Est GFR (MDRD) Non-Af 89, BUN/Creatinine Ratio 15.7, Glucose 84, Calcium 8.7, Total Bilirubin 0.80, AST 32, ALT 49, Alkaline Phosphatase 73, Total Protein 7.4, Albumin 3.5, Globulin 3.9, Albumin/Globulin Ratio 0.9 10/03/19 19:20: Urine Color Yellow, Urine Clarity Clear, Urine pH 5.0, Ur Specific [place] 1.020, Urine Protein Negative, Urine Glucose (UA) Normal, Urine Ketones Negative, Urine Occult Blood 10 H, Urine Nitrite Negative, Urine Bilirubin Negative, Urine Urobilinogen Normal, Ur Leukocyte Esterase Negative, Urine RBC 0 SEEN, Urine WBC 0 SEEN, Ur Squamous Epith Cells 0 SEEN, Urine Bacteria 0 SEEN, Urine Mucus 0 SEEN 10/04/19 06:10: WBC 7.7, RBC 4.03 L, Hgb 12.1 L, Hct 37.1 L, MCV 92.1, MCH 30.0, MCHC 32.6, RDW Std Deviation 42.9, RDW Coeff of Carol 12.9, Plt Count 187, MPV 9.9, Immature Gran % (Auto) 0.700, Neut % (Auto) 62.7, Lymph % (Auto) 21.8, [place] % (Auto) 12.3 H, Eos % (Auto) 2.0, Baso % (Auto) 0.5, Absolute Neuts (auto) 4.8, Absolute Lymphs (auto) 1.67, Nucleated RBC % 0 10/04/19 06:10: Sodium 141, Potassium 4.2, Chloride 109 H, Carbon Dioxide 27.0, Anion Gap 5, BUN 13, Creatinine 0.96, Estim Creat Clear Calc 135.25, Est GFR (MDRD) Af Amer 124, Est GFR (MDRD) Non-Af 103, BUN/Creatinine Ratio 13.5, Glucose 116 H, Calcium 8.2 L Current Medications Acetaminophen (Tylenol) 650 mg PO Q6H PRN PRN PRN Reason: Pain Score 1-10/Temp > 100.7 F Enoxaparin Sodium (Lovenox) 40 mg SC DAILY [facility] Last Admin: 10/04/19 10:14 Dose: 40 mg Documented by: Hydralazine HCl (Apresoline Iv) 5 mg IV Q4H PRN PRN PRN Reason: SBP > 160 Vancomycin IV Pharmacy to Dose (1 ea/ Sodium Chloride) 500 mls @ 250 mls/hr IV PRN PRN; Protocol PRN Reason: Rx to Dose Vancomycin HCl 1,500 mg/ (Sodium Chloride) 530 mls @ 250 mls/hr IV Q8H [facility] Last Infusion: 10/04/19 08:52 Dose: Infused Documented by: Melatonin (Melatonin) 3 mg PO QHS PRN PRN PRN Reason: INSOMNIA Ondansetron HCl (Zofran) 4 mg IV Q8H PRN PRN PRN Reason: NAUSEA/VOMITING Sodium Chloride () 10 - 40 ml IV UD PRN PRN Reason: SALINE FLUSH Discharge Diet: No Restrictions Discharge Activity: Return to Normal Activity Return to work on:: 10/08/19 Weight Bearing Status: Weight bearing as tolerated Keep extremity elevated above heart level: Right Leg Call your doctor if your incision/area has: Continuous Slow Oozing, Sudden Increased Bleeding, Increased Pain/ Swelling, Increased Redness, Foul Smelling Discharge Call your doctor if you observe: Fever of 101 or Higher Home Medications: Medications to take at Discharge Acetaminophen 1,000 mg PO TID PRN #1 tablet 10/04/19 Ibuprofen 600 mg PO 4X/DAY PRN #1 tablet 10/04/19 Sulfamethoxazole/Trimethoprim [Bactrim Ds Tablet] 1 ea PO BID #14 tab 10/04/19 Following Prescriptions Were Given to Patient: Acetaminophen 1,000 mg PO TID PRN #1 tablet PRN Reason: Pain Or Fever Sulfamethoxazole/Trimethoprim [Bactrim Ds Tablet] 1 ea PO BID #14 tab Transmission Status: Pending to [facility] Ibuprofen 600 mg PO 4X/DAY PRN #1 tablet PRN Reason: Pain Score 1-10/10 Primary Care Physician: Jenny Phillip MD [Primary Care Provider] - Within 1 Week Disposition: Home Minutes spent on discharge:: 32 Patient Condition:: Good Medical Necessity - Tobacco Use Smoking Status: Current some day smoker Tobacco Use: Cigarettes Meaningful Use Info Meaningful Use Diagnoses (Choose all that apply): None applicable Inpatient E&M: [id number] [facility]
[2019-10-04 12:52] VITALS: O2SAT 98
--- NOTE | 2019-10-04 12:54 | PCM.WORK.EX ---
Work/School Excuse Work/School Excuse for:: Patient Please excuse this person from:: Work From: 10/03/19 through: 10/07/19 - May return to normal duties on 10/08/2019.
--- NOTE | 2019-10-04 14:19 | CHAPLAIN ---
Type of Pastoral Visit _x__ Initial Visit ___ Follow-up Visit ___ On-call Visit ___ General Patient Visit ___ Spiritual Assessment ___ Family Conference ___ Bereavement ___ Rapid Response ___ Code Blue ___ Other (describe below) Pastoral Care Referral From _x__ Patient _x__ Family ___ Nurse ___ Physician ___ Software Applications Developer ___ Trail Construction Worker ___ Other (describe below) Sacrament/Intervention _x__ Active listening ___ Anointing ___ Scientology ___ Bereavement ___ Communion ___ Radha exploration ___ ___ Life review _x__ Prayer ___ Reconciliation ___ Sacrament of Sick _x__ Supportive presence ___ Wedding ___ Other (describe below) Pastoral Comments
[2019-10-04 14:20] VITALS: BP 143/75; PULSE 80; RESP 20; TEMP 36.8; O2SAT 100
== END 2019-10-04 14:35 | disposition home or self-care (01) ==
LOC: ED 20:16 → MS3 10-04 07:01
PROVIDERS: Admitting Provider Hospitalist; Emergency Provider Emergency Medicine; PCP Internal Medicine; Referring Provider Hospitalist
DX: L03.115 Cellulitis of right lower limb (principal); E66.01 Morbid (severe) obesity due to excess calories; F17.210 Nicotine dependence, cigarettes, uncomplicated; Z68.43 Body mass index [BMI] 50.0-59.9, adult; Z86.14 Personal history of Methicillin resistant Staphylococcus aureus infection; R03.0 Elevated blood-pressure reading, without diagnosis of hypertension
CPT/HCPCS: 36415; 80048; 80053; 81001; 83605; 85025; 85610; 85730; 87040; 93005; 96361; 96365; 96366; 96367; 96372; 99218; 99285; J7030; J7040; A4216; G0378; J0295